=== PATIENT | male | born 1985 | race Caucasian/White ===

== ENCOUNTER 2023-01-24 17:30 | Inpatient (IN) ==
--- NOTE | 2023-01-24 18:15 | Emergency Department Note ---
History of Present Illness General Chief complaint: Seizure Time Seen by Provider: 01/24/23 17:56 History of Present Illness Maximum Pain Intensity: 4 This is a 37-year-old male that presents to the emergency department via private vehicle accompanied by corrections officers with complaints of "seizure". Patient currently resides at [facility]. Patient has a history of seizures. Patient notes that he was seizure-free for about a year and a half. He states that seizures began around 2006 following head and neck injury. Patient notes he was most recently here in the ED on 01/18/23 for evaluation of seizures. He notes that generally he experiences a taste of metal in his mouth preceding the seizure. He states that his Keppra was increased from 750 mg p.o. twice daily to 1000 mg p.o. twice daily. He notes then today seizures occurred again. It was reported that he had about 5 seizures today. Patient denies any preceding illness. No fevers. No chest pain or shortness of breath. Patient does note some minor left occipital head discomfort as he believes he struck his head off of the wall during the seizure. He denies biting the tongue or urinary incontinence. Home Medications Medication Instructions Recorded Confirmed Type albuterol sulfate 90 mcg/actuation 2 puff inhalation QID PRN 01/24/23 01/24/23 History aerosol inhaler Shortness Of Breath atenolol 50 mg tablet 50 mg PO DAILY 01/24/23 01/24/23 History buspirone 10 mg tablet 20 mg PO BID 01/24/23 01/24/23 History ciclesonide 80 mcg/actuation 1 puff inhalation BID 01/24/23 01/24/23 History aerosol inhaler (Alvesco) dicyclomine 20 mg tablet 20 mg PO TID PRN .. 01/24/23 01/24/23 History gabapentin 400 mg capsule 400 mg PO BID 01/24/23 01/24/23 History levetiracetam 1,000 mg tablet 1,000 mg PO BID 01/24/23 01/24/23 History nortriptyline 50 mg capsule 50 mg PO DAILY 01/24/23 01/24/23 History nortriptyline 50 mg capsule 100 mg PO HS 01/24/23 01/24/23 History paliperidone palmitate 234 mg/1.5 234 mg IM .[id number] 01/24/23 01/24/23 History mL intramuscular syringe (Invega Sustenna) tamsulosin 0.4 mg capsule 0.4 mg PO DAILY 01/24/23 01/24/23 History Allergies Allergy/AdvReac Type Severity Reaction Status Date / Time benztropine [From Cogentin] Allergy Unknown Verified 01/24/23 18:16 diphenhydramine Allergy Unknown Verified 01/24/23 18:16 [From Benadryl Allergy] Penicillins Allergy Unknown Verified 01/24/23 18:16 phenytoin [From Dilantin] Allergy Unknown Verified 01/24/23 18:16 prazosin [From Minipress] Allergy Unknown Verified 01/24/23 18:16 Past Med/Surg History Medical History Seizures Social History Smoking Status: Former smoker Second Hand Exposure: No; Do You Dip or Chew Tobacco: No; Hx Alcohol Use: No Hx Substance Use: No Preferred Language: Yakut Communication Ability: Effective Beliefs That Will Affect Care: None Current Living Situation: Other Current Living Situation Comment: [facility] Other Information That Helps Us Care for You: No Feels Safe at Home: Yes Safety Concerns: Feels Safe At This Time Assistive Devices: None Review of Systems A total of 10 systems reviewed and were otherwise negative Physical Exam Vital Signs Vital Signs - 24 hr 01/24/23 17:37 01/24/23 17:44 01/24/23 18:19 Temperature 36.7 C Temperature Source Oral Pulse Rate 91 H 93 H 82 Pulse Rate from SpO2 Sensor Respiratory Rate 16 18 Blood Pressure 120/90 Blood Pressure Mean 100 Pulse Oximetry 94 96 Oxygen Delivery Method Room Air Sepsis Recent Fever Within 48 Hours No Sepsis New/Unexplained Change in Mental Status No Sepsis Action Taken by Nursing No Action Required 01/24/23 17:40 01/24/23 18:00 01/24/23 18:00 Temperature Temperature Source Pulse Rate 101 H 90 Pulse Rate from SpO2 Sensor 103 H 89 Respiratory Rate 19 24 Blood Pressure 122/75 Blood Pressure Mean 90 Pulse Oximetry 94 94 Oxygen Delivery Method Sepsis Recent Fever Within 48 Hours Sepsis New/Unexplained Change in Mental Status Sepsis Action Taken by Nursing 01/24/23 18:30 01/24/23 19:00 01/24/23 19:00 Temperature Temperature Source Pulse Rate 85 85 Pulse Rate from SpO2 Sensor 85 Respiratory Rate 21 24 Blood Pressure 119/83 Blood Pressure Mean 95 Pulse Oximetry 96 Oxygen Delivery Method Sepsis Recent Fever Within 48 Hours Sepsis New/Unexplained Change in Mental Status Sepsis Action Taken by Nursing 01/24/23 19:30 01/24/23 19:30 Temperature Temperature Source Pulse Rate 82 Pulse Rate from SpO2 Sensor 81 Respiratory Rate 21 Blood Pressure 124/88 Blood Pressure Mean 100 Pulse Oximetry 95 Oxygen Delivery Method Sepsis Recent Fever Within 48 Hours Sepsis New/Unexplained Change in Mental Status Sepsis Action Taken by Nursing VITAL SIGNS - Vital signs and triage nursing notes were reviewed. Stable and afebrile. GENERAL -37-year-old male appearing his stated age who is in no acute distress. Communicates well with provider and answers questions appropriately. SKIN - Without rashes. No meningeal or petechial rash. HEAD - NC/AT. EYES - PERRL with EOMI bilaterally. Sclera anicteric. EARS - No deformities of external structures noted on gross examination bilaterally. External auditory canals without discharge or otorrhea. Tympanic membranes pearly mckeon without retraction or bulging. No fluid or purulent material visualized behind the TM. Handle of malleus, umbo, cone of light, pars tensa/flaccid all easily visualized. NOSE - Midline and without cyanosis. No epistaxis or purulent drainage noted. Septum midline without deviation or septal hematoma noted. MOUTH/OROPHARYNX - Without perioral cyanosis. NECK - Neck with FROM. No nuchal rigidity. LUNGS -clear to auscultation. CARDIAC -regular rate and rhythm. EXTREMITIES - No clubbing or peripheral cyanosis. No pretibial edema present. +5/5 strength noted in UE/LE bilaterally. NEUROLOGIC - Cranial nerves II through XII grossly intact. PSYCH - A&Ox3 and cooperates fully with examiner. Pt is very pleasant and interacts well with examiner. Course Administered Medications Enoxaparin Sodium (Enoxaparin Inj 40 Mg/0.4 Ml Syr) 40 mg SQ Q24H MICHAEL Stop: 02/23/23 21:59 Last Admin: 01/24/23 23:08 Dose: 40 mg Documented By: AMM Sodium Chloride (Nss 1000ml) 1,000 mls @ 100 mls/hr IV .Q10H MICHAEL Stop: 01/25/23 07:59 Last Admin: 01/24/23 23:08 Dose: 100 mls/hr Documented By: LIUDMILA Discontinued Medications Gabapentin (Gabapentin 400 Mg Cap) 400 mg PO NOW STA Stop: 01/24/23 19:33 Last Admin: 01/24/23 20:17 Dose: 400 mg Documented By: ZACHARY Levetiracetam 1,000 mg/ Sodium (Chloride) 110 mls @ 440 mls/hr IV NOW STA Stop: 01/24/23 19:59 Last Infusion: 01/24/23 20:39 Dose: 0 mls/hr Documented By: Admin: 01/24/23 20:17 Dose: 440 mls/hr Documented By: ZACHARY Levetiracetam (Levetiracetam 500 Mg Tab) 1,000 mg PO NOW STA Stop: 01/24/23 19:33 Last Admin: 01/24/23 20:17 Dose: Not Given Documented By: ZACHARY Medical Decision Making Laboratory Data 01/24/23 18:00 01/24/23 18:00 Lab Results 01/24/23 01/24/23 01/24/23 Range/Units 18:00 18:00 18:00 WBC 8.42 (4.8-10.8) K/ul RBC 4.13 L (4.70-6.10) M/uL Hgb 12.7 L (14.0-18.0) g/dl Hct 37.6 L (42.0-52.0) % MCV 91.0 (80.0-100.0) fL MCH 30.8 (25.0-34.0) pg MCHC 33.8 (32.0-36.0) g/dL RDW Std Deviation 42.4 (36.4-46.3) fL RDW Coeff of Casi 12.9 (11.5-14.5) % Plt Count 261 (130-400) K/uL MPV 11.0 (9.4-12.4) fL Immature Gran % (Auto) 0.4 % Neut % (Auto) 69.1 % Lymph % (Auto) 22.9 % Sharp % (Auto) 6.1 % Eos % (Auto) 0.8 % Baso % (Auto) 0.7 % Neut # (Auto) 5.82 (1.40-6.50) K/uL Lymph # (Auto) 1.93 (1.2-3.4) K/uL Sharp # (Auto) 0.51 (0.11-0.59) K/uL Eos # (Auto) 0.07 (0-0.50) K/uL Baso # (Auto) 0.06 (0-0.2) K/uL Immature Gran # (Auto) 0.03 (0.01-0.20) K/uL Sodium 139 (136-145) mmol/L Potassium 3.8 (3.5-5.1) mmol/L Chloride 108 H (98-107) mmol/L Carbon Dioxide 25 (21-32) mmol/L Anion Gap 6 (3-11) BUN 12 (6-23) mg/dl Creatinine 0.98 (0.6-1.4) mg/dl Est Cr Clr Drug Dosing 111.0 ml/min Est GFR ( Amer) 113.7 ml/min Est GFR (Non-Af Amer) 98.1 ml/min BUN/Creatinine Ratio 12.2 (10-20) Glucose 120 H (70-99(Fasting)) mg/dl Calcium 9.1 (8.6-10.3) mg/dl Magnesium 2.0 (1.7-2.4) mg/dl Total Bilirubin 0.3 (0.2-1.0) mg/dl AST 20 (13-39) U/L ALT 20 (7-52) U/L Alkaline Phosphatase 91 (34-104) U/L Total Protein 6.4 (6.0-8.3) gm/dl Albumin 4.0 (3.4-5.0) gm/dl Globulin 2.4 L (2.5-4.0) gm/dl Albumin/Globulin Ratio 1.7 (0.9-2) TSH 1.493 (0.300-4.500) uIu/ml SARS-CoV-2, RNA, NAAT (NEGATIVE) 01/24/23 Range/Units 18:30 WBC (4.8-10.8) K/ul RBC (4.70-6.10) M/uL Hgb (14.0-18.0) g/dl Hct (42.0-52.0) % MCV (80.0-100.0) fL MCH (25.0-34.0) pg MCHC (32.0-36.0) g/dL RDW Std Deviation (36.4-46.3) fL RDW Coeff of Casi (11.5-14.5) % Plt Count (130-400) K/uL MPV (9.4-12.4) fL Immature Gran % (Auto) % Neut % (Auto) % Lymph % (Auto) % Sharp % (Auto) % Eos % (Auto) % Baso % (Auto) % Neut # (Auto) (1.40-6.50) K/uL Lymph # (Auto) (1.2-3.4) K/uL Sharp # (Auto) (0.11-0.59) K/uL Eos # (Auto) (0-0.50) K/uL Baso # (Auto) (0-0.2) K/uL Immature Gran # (Auto) (0.01-0.20) K/uL Sodium (136-145) mmol/L Potassium (3.5-5.1) mmol/L Chloride (98-107) mmol/L Carbon Dioxide (21-32) mmol/L Anion Gap (3-11) BUN (6-23) mg/dl Creatinine (0.6-1.4) mg/dl Est Cr Clr Drug Dosing ml/min Est GFR ( Amer) ml/min Est GFR (Non-Af Amer) ml/min BUN/Creatinine Ratio (10-20) Glucose (70-99(Fasting)) mg/dl Calcium (8.6-10.3) mg/dl Magnesium (1.7-2.4) mg/dl Total Bilirubin (0.2-1.0) mg/dl AST (13-39) U/L ALT (7-52) U/L Alkaline Phosphatase (34-104) U/L Total Protein (6.0-8.3) gm/dl Albumin (3.4-5.0) gm/dl Globulin (2.5-4.0) gm/dl Albumin/Globulin Ratio (0.9-2) TSH (0.300-4.500) uIu/ml SARS-CoV-2, RNA, NAAT NEGATIVE (NEGATIVE) Imaging Data Radiologist's Impression: Head CT 01/24/23 18:16 CT OF THE HEAD WITHOUT CONTRAST CLINICAL HISTORY: seizure, struck head COMPARISON STUDY: Head CT January 18, 2023. CT DOSE: 638.56 mGycm TECHNIQUE: Helical axial images of the head were obtained without IV contrast. Automated exposure control was utilized for the study. A dose lowering technique was utilized adhering to the principles of ALARA. FINDINGS: No acute intracranial hemorrhage, midline shift or mass effect is present. The ventricular system is unremarkable. The basal cisterns are patent. No extra-axial collections are present. There are no findings to suggest acute dural sinus thrombosis or acute territorial infarct. No significant calvarial abnormalities are present. Visualized portions of the sinuses and mastoid air cells are clear. IMPRESSION: 1. No acute intracranial findings. No acute calvarial fracture. ACT 112: Negative or not required by law. Electronically signed by: Mohit Plata M.D. 01/24/2023 6:59 PM MDM Narrative Patient was seen and evaluated as above in room A10. Review was performed of nursing notes and vital signs. I did review pertinent previous visits and patient history. After obtaining a thorough history and physical examination the above work up was performed. Patient presents to us today for evaluation of seizures. Patient has a history remotely of seizures but was seizure-free for about a year and a half up until 01/18/2023. He was discharged following increase of his Keppra dosing. Clinically he is well-appearing and nontoxic at this time. Vital signs stable. No evidence of meningitis or encephalitis. Options of care were discussed with the patient. IV access was established. La bs were drawn. There is no leukocytosis. Minor anemia noted with hemoglobin of 12.7. No emergent metabolic disturbance. TSH reveals euthyroid state. Gabapentin and Keppra level pending. COVID testing negative. CT scan was obtained of the head as the patient believes he struck his head today during seizure. It is felt that the benefit of the imaging outweighs risk. CT imaging as above. This was negative. I do not suspect infectious etiology. I did reach out to the [facility] and ultimately spoke to SOFI Clifton regarding patient presentation. She provide additional history noting that the patient did seizures on 01/18 but also had seizures again between the ED visit that day and today. With the patient having several seizures despite reported compliance with his medication I did find it reasonable to proceed with medical admission here. I also spoke with neurology, Dr. Oh. We did agree to 1000 mg of Keppra here in the ED followed by 1000 mg of Keppra intravenously twice daily while hospitalized. [facility] Please refer to further documentation regarding his stay. While here in the ED I did order the patient 1000 g of IV Keppra as well as oral gabapentin that he currently is due for as the last dose of both these medications was around 6 AM today after reviewing this with the [facility]. EKG reveals normal sinus rhythm at a rate of 83 bpm. QTc 420. QRS 92. No ST elevation. GCS: 15 In the evaluation and treatment of this patient the following differential diagnoses were entertained: Meningitis, encephalitis, concussion, acute intracranial hemorrhage, seizure, among others. Impression & Plan Seizures Discharge Plan Visit Data Chief Complaint: Seizure ED Provider: Fahad Godfrey ED Midlevel Provider: Jeramie Leary Discharge Problem: Seizures Patient Disposition: Admitted As Inpatient Condition: Good Discharge Instructions Interventions: ED Discharge Assessment Last Done: 01/24/23 21:33
[2023-01-24 18:53] LABS: Albumin Globulin Ratio 1.7 (0.9-2); BUN Creatinine Ratio 12.2 (10-20); Basophils # (auto) 0.06 K/uL (0-0.2); Basophils % (auto) 0.7 %; Bilirubin,Total 0.3 mg/dl (0.2-1.0); Calcium 9.1 mg/dl (8.6-10.3); Eosinophils # (auto) 0.07 K/uL (0-0.50); Eosinophils % (auto) 0.8 %; Est GFR (African American) 113.7 ml/min; Est GFR (Non-African American) 98.1 ml/min; Globulin 2.4 gm/dl (2.5-4.0); Hematocrit (blood only) 37.6 % (42.0-52.0); Hemoglobin 12.7 g/dl (14.0-18.0); Immature Granulocytes # (auto) 0.03 K/uL (0.01-0.20); Immature Granulocytes % (auto) 0.4 %; Lymphocytes # (auto) 1.93 K/uL (1.2-3.4); Lymphocytes % (auto) 22.9 %; Mean Corpuscular Hemoglobin 30.8 pg (25.0-34.0); Mean Corpuscular Hgb Conc 33.8 g/dL (32.0-36.0); Monocytes # (auto) 0.51 K/uL (0.11-0.59); Monocytes % (auto) 6.1 %; Neutrophils # (auto) 5.82 K/uL (1.40-6.50); Neutrophils % (auto) 69.1 %; Platelet Count 261 K/uL (130-400); Potassium 3.8 mmol/L (3.5-5.1); RDW Coefficient of Variation 12.9 % (11.5-14.5); RDW Standard Deviation 42.4 fL (36.4-46.3); Red Blood Count 4.13 M/uL (4.70-6.10); Total Protein 6.4 gm/dl (6.0-8.3); White Blood Count 8.42 K/ul (4.8-10.8)
--- NOTE | 2023-01-24 19:00 | CT Scan Report ---
CT OF THE HEAD WITHOUT CONTRAST CLINICAL HISTORY: seizure, struck head COMPARISON STUDY: Head CT January 18, 2023. CT DOSE: 638.56 mGycm TECHNIQUE: Helical axial images of the head were obtained without IV contrast. Automated exposure con trol was utilized for the study. A dose lowering technique was utilized adhering to the principles o f ALARA. FINDINGS: No acute intracranial hemorrhage, midline shift or mass effect is present. The ventricular system is unremarkable. The basal cisterns are patent. No extra-axial collections are present. There are no findings to suggest acute dural sinus thrombosis or acute territorial infarct. No significant calvarial abnormalities are present. Visualized portions of the sinuses and mastoid air cells are sara ar. IMPRESSION: 1. No acute intracranial findings. No acute calvarial fracture. ACT 112: Negative or not required by law. Electronically signed by: Mohit Plata M.D. 01/24/2023 6:59 PM
[2023-01-24] MEDS ORDERED: levETIRAcetam 500 MG TAB PO STA (19:32)
[2023-01-24] MEDS ORDERED: GABAPENTIN 400 MG CAP PO STA (19:32)
[2023-01-24] MEDS ORDERED: levETIRAcetam 1,000 MG in 0.9 % SODIUM CHLORIDE 100 ML IV STA (19:45)
[2023-01-24] MEDS ORDERED: ONDANSETRON INJ 2 MG/ML 2 ML VIAL IV PRN (22:00)
[2023-01-24] MEDS ORDERED: NITROGLYCERIN SL 0.4 MG/TAB TAB SL PRN (22:00)
[2023-01-24] MEDS ORDERED: POLYETHYLENE (MIRALAX) 17 GM PACK PO PRN (22:00)
[2023-01-24] MEDS ORDERED: SODIUM CHLORIDE 0.9% 1000ML 1,000 ML IV SCH (22:00)
[2023-01-24] MEDS ORDERED: LORazepam 2 MG/1 ML VIAL IV PRN (22:00)
[2023-01-24] MEDS ORDERED: ALBUTEROL HFA 8 GM INHALER INH PRN (22:00)
[2023-01-24] MEDS: ENOXAPARIN INJ 40 MG/0.4 ML SYR SQ SCH (23:08)
--- NOTE | 2023-01-24 23:28 | History and Physical Report ---
DATE OF ADMISSION: 01/24/2023. CHIEF COMPLAINT: Seizures. HISTORY OF PRESENT ILLNESS: This is a 37-year-old male with past medical history significant for seizures since he had head injury in 2006, history of hypertension, asthma, history of bipolar disorder, psychiatric illness, presently in longterm, presents with seizures. The patient was here in the ER on 01/18/2023 with seizure episodes. It looks like that seizure was after 18 months since the last seizure and he told he was compliant with Keppra. before coming to Er at that was given IM Ativan and the ER physician talked to the neurology funeral professional and got an extra IV Keppra here and as workup was negative, was discharged,.Now again comes back from the longterm today because he had several episodes of seizures today. The patient says they last a few seconds, sometimes he was confused for a short period of time or had some word finding difficulty for a short period of time and mental status comes back to normal. ER called the longterm and was notified that he was taking his medications regularly. ER again talked to neurology funeral professional and recommended to give IV Keppra and also monitor in the hospital. Currently, the patient is resting comfortably, hemodynamically stable. Denies biting his tongue , he says that he has no lower teeth. Denies any incontinence. Currently, he is eating ice cream in the ER room. He says that he currently has no headache, no dizziness, no blurred visions, no earache, no runny nose, no sore throat, no cough, no fevers, no difficulty swallowing. No chest pain, no shortness of breath. No nausea or vomiting. No abdominal pain. Normal bowel and bladder movements. The patient says he smokes e cigarettes and also denies any alcohol use. He used to do drugs in the past, the last time he did drugs was about 1-1/2 years ago. ALLERGIES: COGENTIN, BENADRYL, PENICILLINS, PHENYTOIN, MINIPRESS. PAST MEDICAL HISTORY: As mentioned above. PAST SURGICAL HISTORY: Appendectomy, surgeries in the right hand, and surgery for a pilonidal sinus. He had petty for his head injury. MEDICATIONS: The patient seems to be on albuterol 2 puffs inhalation q.i.d. p.r.n., atenolol 50 mg p.o. daily, BuSpar 20 mg p.o. b.i.d., Alvesco 1 puff inhalation b.i.d., dicyclomine 20 mg p.o. b.i.d. p.r.n., gabapentin 400 mg p.o. b.i.d., Keppra 1000 mg p.o. b.i.d., nortriptyline 50 mg p.o. daily, nortriptyline 100 mg p.o. at bedtime, Invega Sustenna 234 mg IM q. 4 hours, Flomax 0.4 mg p.o. daily. FAMILY HISTORY: Significant for history of cancer in the family. SOCIAL HISTORY: Smokes few cigarettes for a long time. Denies alcohol use. States he used to smoke drugs in the past, last time was about 1 to 1-1/2 years ago. REVIEW OF SYSTEMS: As per HPI. Rest of review of systems is negative. PHYSICAL EXAMINATION: GENERAL: The patient is of moderate build, not in acute distress. VITAL SIGNS: Temperature 36.7, pulse 82, respiratory rate 21, blood pressure 124/88, oxygen 94% on room air. HEENT: Pupils equal, round, and reactive to light. Oral mucosa moist. NECK: No JVD, no neck masses. CARDIOVASCULAR: S1 and S2 heard. Regular rate and rhythm. No murmur, no gallop. RESPIRATORY SYSTEM: Normal AP diameter. No accessory muscle use. No wheezing, no crackles. ABDOMEN: Soft, bowel sounds present, nontender, no distention. CENTRAL NERVOUS SYSTEM: Alert and oriented. Speech is clear. No facial droop. Obeys commands. Power 5/5 in all extremities. EXTREMITIES: No edema, no erythema. LABORATORY DATA: WBC 8.2, hemoglobin 12.7, hematocrit 37.6, platelets 261. Sodium 139, potassium 3.8, chloride 108, CO2 of 25, BUN 12, creatinine 0.98, serum glucose 120, calcium 9.1, magnesium 2, total bilirubin 0.3, AST 20, ALT 20, alkaline phosphatase 91. TSH 1.4. SARS-CoV-2 rapid test negative. IMAGING DATA: CT of the head without contrast, no acute findings. EKG: Normal sinus rhythm, rate of 83, no acute ST changes seen. ASSESSMENT AND PLAN: This is a 37-year-old male who presents with seizures. 1. Seizures: Ongoing breakthrough seizures, recurrent. Was recently in the ER, at that time Keppra dose was increased. It looks like he has also had gabapentin in the longterm. Still having breakthrough seizures, short burst of seizures. As per the patient, he does not remember when they happen. Neurology notified by the ER. He was given IV Keppra 1 gram. Will continue with IV Keppra 1 gram b.i.d., continue his gabapentin for now, and IV Ativan p.r.n. for breakthrough seizures. We will get EEG. Consult neurology in the a.m. Monitor in the tele floor. 2. History of asthma: Continue his home inhalers. Currently stable. 3. History of hypertension: Continue his atenolol. 4. History of bipolar and psychiatric illness: Continue his home medications. 5. Deep venous thrombosis prophylaxis: Lovenox. DISPOSITION: Closely monitor in the tele floor. PT, OT prior to discharge. Social service to help with discharge planning. Level 1 full code. Job ID: [id number] [facility]
[2023-01-25 06:02] LABS: Basophils # (auto) 0.06 K/uL (0-0.2); Basophils % (auto) 0.8 %; Eosinophils # (auto) 0.12 K/uL (0-0.50); Eosinophils % (auto) 1.6 %; Hematocrit (blood only) 37.7 % (42.0-52.0); Hemoglobin 12.6 g/dl (14.0-18.0); Immature Granulocytes # (auto) 0.02 K/uL (0.01-0.20); Immature Granulocytes % (auto) 0.3 %; Lymphocytes # (auto) 2.39 K/uL (1.2-3.4); Lymphocytes % (auto) 31.2 %; Mean Corpuscular Hgb Conc 33.4 g/dL (32.0-36.0); Mean Corpuscular Volume 92.9 fL (80.0-100.0); Mean Platelet Volume 10.9 fL (9.4-12.4); Monocytes # (auto) 0.63 K/uL (0.11-0.59); Monocytes % (auto) 8.2 %; Neutrophils # (auto) 4.43 K/uL (1.40-6.50); Neutrophils % (auto) 57.9 %; Platelet Count 248 K/uL (130-400); RDW Coefficient of Variation 12.9 % (11.5-14.5); RDW Standard Deviation 44.3 fL (36.4-46.3); Red Blood Count 4.06 M/uL (4.70-6.10); White Blood Count 7.65 K/ul (4.8-10.8)
[2023-01-25 06:08] LABS: BUN Creatinine Ratio 15.7 (10-20); Calcium 8.5 mg/dl (8.6-10.3); Creatinine Clr Calc Pharmacy 120.3 ml/min; Est GFR (African American) 126.6 ml/min; Est GFR (Non-African American) 109.2 ml/min; Magnesium 1.9 mg/dl (1.7-2.4); Potassium 3.8 mmol/L (3.5-5.1)
[2023-01-25 07:25] LABS: Appearance Urine Clear (Clear); Bilirubin Urine Negative (Negative); Blood Urine Negative (Negative); Color Urine Yellow; Glucose Urine UA Negative (Negative); Ketones Urine Negative (Negative); Leukocyte Esterase Urine Negative (Negative); Nitrite Urine Negative (Negative); Protein Urine Negative (Negative); Specific Gravity Urine 1.017 (1.000-1.030); Urobilinogen Urine Negative (Negative); pH Urine 6.5 (4.5-7.5)
[2023-01-25] MEDS: TAMSULOSIN HCL 0.4 MG CAP PO SCH (08:32)
[2023-01-25] MEDS: busPIRone 5 MG TAB PO SCH ×2 (08:32→20:24)
[2023-01-25] MEDS: ATENOLOL 50 MG TABLET PO SCH (08:33)
[2023-01-25] MEDS: GABAPENTIN 400 MG CAP PO SCH ×2 (08:33→20:24)
[2023-01-25] MEDS: ACETAMINOPHEN 325 MG TAB PO PRN ×2 (08:33→18:14)
[2023-01-25] MEDS: NORTRIPTYLINE HCL 25 MG CAP PO SCH (08:33)
[2023-01-25] MEDS: FLUTICASONE FUROATE 100MCG 14 PUFFS/INHALER INH SCH (08:34)
[2023-01-25] MEDS ORDERED: levETIRAcetam 1,000 MG in 0.9 % SODIUM CHLORIDE 100 ML IV SCH (09:00)
--- NOTE | 2023-01-25 10:51 | Electroencephalogram ---
EEG Procedure Note Date of Service January 25, 2023 Start / End Times Start Time: 9:27 AM End Time: 9:[address] Yang History Seizure disorder, recent seizures Home Medication List Medication Instructions Recorded Confirmed Type albuterol sulfate 90 mcg/actuation 2 puff inhalation QID PRN 01/24/23 01/24/23 History aerosol inhaler Shortness Of Breath atenolol 50 mg tablet 50 mg PO DAILY 01/24/23 01/24/23 History buspirone 10 mg tablet 20 mg PO BID 01/24/23 01/24/23 History ciclesonide 80 mcg/actuation 1 puff inhalation BID 01/24/23 01/24/23 History aerosol inhaler (Alvesco) dicyclomine 20 mg tablet 20 mg PO TID PRN .. 01/24/23 01/24/23 History gabapentin 400 mg capsule 400 mg PO BID 01/24/23 01/24/23 History levetiracetam 1,000 mg tablet 1,000 mg PO BID 01/24/23 01/24/23 History nortriptyline 50 mg capsule 50 mg PO DAILY 01/24/23 01/24/23 History nortriptyline 50 mg capsule 100 mg PO HS 01/24/23 01/24/23 History paliperidone palmitate 234 mg/1.5 234 mg IM .[id number] 01/24/23 01/24/23 History mL intramuscular syringe (Invega Sustenna) tamsulosin 0.4 mg capsule 0.4 mg PO DAILY 01/24/23 01/24/23 History Inpatient Medication List Acetaminophen (Acetaminophen 325 Mg Tab) 650 mg PO Q4H PRN PRN Reason: Pain or Fever Stop: 02/23/23 21:59 Last Admin: 01/25/23 08:33 Dose: 650 mg Documented By: SHON Atenolol (Atenolol 50 Mg Tablet) 50 mg PO DAILY [facility] Stop: 02/24/23 08:59 Last Admin: 01/25/23 08:33 Dose: 50 mg Documented By: SHON Buspirone HCl (Buspirone 5 Mg Tab) 20 mg PO BID [facility] Stop: 02/24/23 08:59 Last Admin: 01/25/23 08:32 Dose: 20 mg Documented By: TARA Enoxaparin Sodium (Enoxaparin Inj 40 Mg/0.4 Ml Syr) 40 mg SQ Q24H MICHAEL Stop: 02/23/23 21:59 Last Admin: 01/24/23 23:08 Dose: 40 mg Documented By: LIUDMILA Fluticasone Furoate (Fluticasone Furoate 100mcg 14 Puffs/Inhaler) 1 puffs INH DAILY MICHAEL Stop: 02/24/23 08:59 Last Admin: 01/25/23 08:34 Dose: 1 puffs Documented By: SHON Gabapentin (Gabapentin 400 Mg Cap) 400 mg PO BID MICHAEL Stop: 02/24/23 08:59 Last Admin: 01/25/23 08:33 Dose: 400 mg Documented By: SHON Levetiracetam 1,000 mg/ Sodium (Chloride) 110 mls @ 440 mls/hr IV Q12H MICHAEL Stop: 02/24/23 08:59 Last Infusion: 01/25/23 09:59 Dose: 0 mls/hr Documented By: Admin: 01/25/23 08:38 Dose: 440 mls/hr Documented By: SHON Nortriptyline HCl (Nortriptyline Hcl 25 Mg Cap) 50 mg PO DAILY MICHAEL Stop: 02/24/23 08:59 Last Admin: 01/25/23 08:33 Dose: 50 mg Documented By: SHON Tamsulosin HCl (Tamsulosin Hcl 0.4 Mg Cap) 0.4 mg PO DAILY MICHAEL Stop: 02/24/23 08:59 Last Admin: 01/25/23 08:32 Dose: 0.4 mg Documented By: SHON Discontinued Medications Gabapentin (Gabapentin 400 Mg Cap) 400 mg PO NOW STA Stop: 01/24/23 19:33 Last Admin: 01/24/23 20:17 Dose: 400 mg Documented By: ZACHARY Levetiracetam 1,000 mg/ Sodium (Chloride) 110 mls @ 440 mls/hr IV NOW STA Stop: 01/24/23 19:59 Last Infusion: 01/24/23 20:39 Dose: 0 mls/hr Documented By: Admin: 01/24/23 20:17 Dose: 440 mls/hr Documented By: ZACHARY Sodium Chloride (Nss 1000ml) 1,000 mls @ 100 mls/hr IV .Q10H MICHAEL Stop: 01/25/23 07:59 Last Infusion: 01/25/23 08:02 Dose: 0 mls/hr Documented By: Admin: 01/24/23 23:08 Dose: 100 mls/hr Documented By: LIUDMILA Levetiracetam (Levetiracetam 500 Mg Tab) 1,000 mg PO NOW STA Stop: 01/24/23 19:33 Last Admin: 01/24/23 20:17 Dose: Not Given Documented By: ZACHARY Description This is a 21 electrode EEG with a single channel dedicated to limited EKG. The electrodes were placed in accordance with the International 10-20 system. There is a posterior dominant rhythm of 10 Hz which is symmetrically distributed and attenuates with eye opening. There is a normal anterior to posterior organization. Photic stimulation is unremarkable. Hyperventilation is not performed. There is a symmetric frontal beta rhythm. There is no focal slowing. There are no epileptiform abnormalities. There are no sleep changes. Interpretation Normal-appearing awake/drowsy EEG. A normal EEG does not completely exclude a diagnosis of epilepsy. Further clinical correlation may be needed. [facility] EEG Procedure Codes Indication for Procedure (1) Seizures: Neurology Neurology: 21834 EEG include record awake & drowsy
[2023-01-25] MEDS: PANTOprazole 40 MG TAB PO SCH (10:56)
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
[2023-01-25] MEDS ORDERED: GADOBUTROL 65ML VIAL IV ONE (17:51)
--- NOTE | 2023-01-25 18:09 | Magnetic Resonance Report ---
MRI OF THE BRAIN COMBO CLINICAL HISTORY: Posttraumatic epilepsy. COMPARISON STUDY: CT of the brain dated 01/24/2023. TECHNIQUE: MRI of the brain was performed utilizing various T1 and T2-weighted sequences in the axial , sagittal, and coronal planes. Contrast-enhanced sequences were acquired following the administratio n of 9 cc of Gadavist. The examination was performed using the seizure protocol. FINDINGS: Brain parenchyma: The brain parenchyma is normal in appearance. There is no hemorrhage or mass effect . There is no restricted diffusion to suggest acute ischemia. No enhancing mass lesion is identified on the postcontrast images. Gonzales-white matter differentiation is preserved. No extra-axial fluid krupa ection is seen. The cerebellar tonsils are normal in configuration. The hippocampi are normal and sym metric. Ventricles, sulci, and cisterns: Normal in configuration. Pituitary and sella: Unremarkable. Intracranial vasculature: Normal flow voids are maintained at the skull base. Orbits: The bony orbits are grossly intact. Orbital contents are normal in appearance. Sinuses and mastoids: The paranasal sinuses are clear. There is trace right mastoid effusion. Calvarium: Unremarkable. Cervical cord: Partially visualized cervical spinal cord is normal in morphology and signal intensity . IMPRESSION: No acute intracranial abnormality. ACT 112: Negative or not required by law. Electronically signed by: Chris Hussein M.D. 01/25/2023 6:06 PM
[2023-01-25] MEDS: levETIRAcetam 250 MG TAB PO SCH (20:25)
[2023-01-25] MEDS: ENOXAPARIN INJ 40 MG/0.4 ML SYR SQ SCH (20:27)
[2023-01-25] MEDS ORDERED: NORTRIPTYLINE HCL 25 MG CAP PO SCH (21:00)
--- NOTE | 2023-01-25 22:44 | Electrocardiogram Report ---
Test Reason : Blood Pressure : / mmHG Vent. Rate : 083 BPM Atrial Rate : 083 BPM P-R Int : 144 ms QRS Dur : 092 ms QT Int : 358 ms P-R-T Axes : 017 019 035 degrees QTc Int : 420 ms Poor data quality, interpretation may be adversely affected Normal sinus rhythm Normal ECG When compared with ECG of 18-JAN-2023 11:42, Vent. rate has decreased BY 42 BPM Confirmed by Boni Prescott ([id number]) on 01/25/2023 10:43:43 PM Referred By: [facility], [facility] Confirmed By:Boni Prescott
--- NOTE | 2023-01-26 04:58 | Electrocardiogram Report ---
Test Reason : Blood Pressure : / mmHG Vent. Rate : 087 BPM Atrial Rate : 087 BPM P-R Int : 148 ms QRS Dur : 086 ms QT Int : 354 ms P-R-T Axes : 011 020 017 degrees QTc Int : 425 ms Poor data quality, interpretation may be adversely affected Normal sinus rhythm Normal ECG When compared with ECG of 24-JAN-2023 18:28, No significant change was found Confirmed by Boni Prescott ([id number]) on 01/26/2023 4:58:13 AM Referred By: [facility] Confirmed By:Boni Prescott
[2023-01-26] MEDS: busPIRone 5 MG TAB PO SCH (08:46)
[2023-01-26] MEDS: levETIRAcetam 250 MG TAB PO SCH (08:46)
[2023-01-26] MEDS: PANTOprazole 40 MG TAB PO SCH (08:47)
[2023-01-26] MEDS: ATENOLOL 50 MG TABLET PO SCH (08:47)
[2023-01-26] MEDS: GABAPENTIN 400 MG CAP PO SCH (08:47)
[2023-01-26] MEDS: TAMSULOSIN HCL 0.4 MG CAP PO SCH (08:47)
[2023-01-26] MEDS: NORTRIPTYLINE HCL 25 MG CAP PO SCH (08:48)
[2023-01-26] MEDS: FLUTICASONE FUROATE 100MCG 14 PUFFS/INHALER INH SCH (08:48)
--- NOTE | 2023-01-26 11:58 | Discharge Summary ---
Date of Service January 26, 2023 Admission HPI Per Admitting Provider This is a 37-year-old male with past medical history significant for seizures since he had head injury in 2006, history of hypertension, asthma, history of bipolar disorder, psychiatric illness, presently in intermediate, presents with seizures. The patient was here in the ER on 01/18/2023 with seizure episodes. It looks like that seizure was after 18 months since the last seizure and he told he was compliant with Keppra. before coming to Er at that was given IM Ativan and the ER physician talked to the neurology publication director and got an extra IV Keppra here and as workup was negative, was discharged,.Now again comes back from the intermediate today because he had several episodes of seizures today. The patient says they last a few seconds, sometimes he was confused for a short period of time or had some word finding difficulty for a short period of time and mental status comes back to normal. ER called the intermediate and was notified that he was taking his medications regularly. ER again talked to neurology publication director and recommended to give IV Keppra and also monitor in the hospital. Currently, the patient is resting comfortably, hemodynamically stable. Denies biting his tongue , he says that he has no lower teeth. Denies any incontinence. Currently, he is eating ice cream in the ER room. He says that he currently has no headache, no dizziness, no blurred visions, no earache, no runny nose, no sore throat, no cough, no fevers, no difficulty swallowing. No chest pain, no shortness of breath. No nausea or vomiting. No abdominal pain. Normal bowel and bladder movements. The patient says he smokes e cigarettes and also denies any alcohol use. He used to do drugs in the past, the last time he did drugs was about 1-1/2 years ago. Admission Exam Per Admitting Provider GENERAL: The patient is of moderate build, not in acute distress. VITAL SIGNS: Temperature 36.7, pulse 82, respiratory rate 21, blood pressure 124/88, oxygen 94% on room air. HEENT: Pupils equal, round, and reactive to light. Oral mucosa moist. NECK: No JVD, no neck masses. CARDIOVASCULAR: S1 and S2 heard. Regular rate and rhythm. No murmur, no brown p. RESPIRATORY SYSTEM: Normal AP diameter. No accessory muscle use. No wheezing, no crackles. ABDOMEN: Soft, bowel sounds present, nontender, no distention. CENTRAL NERVOUS SYSTEM: Alert and oriented. Speech is clear. No facial droop. Obeys commands. Power 5/5 in all extremities. EXTREMITIES: No edema, no erythema. Principal Diagnosis Breakthrough seizure History of traumatic injury of head: Discharge Exam Constitutional: WD/WN, vitals as above, NAD, sitting up in bed, pleasant, conversing easily Respiratory: normal respiratory effort, lungs clear to auscultation, no wheeze, rales, rhonchi. Normal insp/exp effort, no accessory muscle use Cardiovascular: RRR, no murmur, no edema Vessels: no JVD or carotid bruit Chest: normal inspection of chest Abdomen: normal bowel sounds, soft, nontender, no hepatosplenomegaly Musculoskeletal: no cyanosis or clubbing, extremities motor strength 5/5 Skin: no rashes, warm and dry normal turgor Neurologic: PERRL, EOMI, accommodation nl, no face palsy, no dysarthria CN's II- XI intact bilaterally and moves all extremities Psychiatric: A+Ox3, euthymic affect : deferred Discharge Data Allergies Allergy/AdvReac Type Severity Reaction Status Date / Time benztropine [From Cogentin] Allergy Unknown Verified 01/24/23 18:16 diphenhydramine Allergy Unknown Verified 01/24/23 18:16 [From Benadryl Allergy] Penicillins Allergy Unknown Verified 01/24/23 18:16 phenytoin [From Dilantin] Allergy Unknown Verified 01/24/23 18:16 prazosin [From Minipress] Allergy Unknown Verified 01/24/23 18:16 Consultations 01/24/23 20:29 ED Decision to Admit Stat 01/25/23 08:00 Consult Neurology Routine Ordered Studies 01/24/23 18:16 CT head/brain wo con Stat 01/25/23 12:35 MRI Brain [MR brain seizure wo/w con] Routine Hospital Course (1) History of traumatic injury of head: (2) Breakthrough seizure: Plan 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 Presented with multiple episode of breakthrough seizures. CT head did not show any acute abnormality. EEG does not show any abnormality. Discussed with neurology; recommend increasing the dose of Keppra to 1250 mg twice daily. Continue on gabapentin 400 mg twice daily. MRI brain with seizure protocol was done; no acute finding was seen. Patient was seizure-free throughout the hospitalization. Patient was discharged back to intermediate. Please note the above document was generated using voice recognition software. It may contain grammatical, syntax or spelling errors. Any formal questions or concerns about the content, text or information contained within the body of this dictation should be directly addressed to the provider for clarification Total Time Total Time Spent Total Time Spent (In Minutes): 40 Total Time Includes: Examination of the Patient, Discharge Planning, Medication Reconciliation, Communication With Other Providers and Other Discharge Plan Discharge Items Patient Disposition: [facility] Reason For Visit: SEIZURE Discharge Diagnosis: (1) History of traumatic injury of head: (2) Breakthrough seizure: Condition on Discharge: Good Activity: Resume your previous activity Non-emergency contact: Primary Care Provider Call non-emergency contact if: you have any medication questions and your symptoms worsen Follow-up/Referrals: Nohemi GONZALEZ [Primary Care Provider] - Adan Attending Provider Instructions: You were admitted to the hospital with breakthrough seizure. You were evaluated by neurology during the hospitalization. You underwent EEG which did not show any abnormality. Also, MRI brain was done with seizure protocol which did not show any abnormality. Neurology recommended to increase the dose of Keppra to 1250 mg twice daily. Continue all other medication as previously. Follow-up with her primary care doctor. Pending Studies at Discharge: No Stand-Alone Forms: My [facility] Skilled Items Patient informed of condition?: Yes Discharge Level of Care: Other Communicable Disease: No Discharge Prognosis: Stable Lines: None Urinary Catheter: No Medications and DC Order Prescriptions: Continued gabapentin 400 mg Capsule 400 mg PO BID tamsulosin 0.4 mg Capsule 0.4 mg PO DAILY dicyclomine 20 mg Tablet 20 mg PO TID PRN (Reason: ..) buspirone [BuSpar] 10 mg Tablet 20 mg PO BID albuterol sulfate 90 mcg/actuation Hfa Aerosol Inhaler 2 puff INHALATION QID PRN (Reason: Shortness Of Breath) atenolol 50 mg Tablet 50 mg PO DAILY nortriptyline 50 mg Capsule 50 mg PO DAILY Rx Instructions: crush & float nortriptyline 50 mg Capsule 100 mg PO HS Rx Instructions: crush Alvesco 80 mcg/actuation Hfa Aerosol Inhaler 1 puff INHALATION BID Invega Sustenna 234 mg/1.5 mL Syringe 234 mg IM .[id number] Rx Instructions: GIVE ON SUNDAY Changed levetiracetam 1,000 mg Tablet 1,250 mg PO BID Qty: 30 0RF Discharge Orders: Discharge Order (Routine); Ordered 01/26/23 Ordered By: Sage Rosa Admission Data Admit Date/Time: 01/24/23 21:05 Attending Provider: Sage Rosa Admit Provider: Miguel Yang Primary Care Provider: Nohemi GONZALEZ Other Providers: Damien Oh ; Miguel Yang
== END 2023-01-26 14:23 | DRG 101 ==
LOC: ED 17:30 → 2S 21:05

== ENCOUNTER 2023-02-20 13:47 | Inpatient (IN) ==
--- NOTE | 2023-02-20 14:06 | Emergency Department Note ---
Impression & Plan Seizure-like activity, History of traumatic injury of head ED Provider Note Provider: Andrea Burger MD DATE OF SERVICE: 02/20/2023 CHIEF COMPLAINT: Seizures HISTORY OF PRESENT ILLNESS: Patient is a 37-year-old gentleman history of hypertension, seizures, IBS, bipolar disorder presenting here today from jail reportedly with more than 30 seizures in last 2 hours. Received 4 mg of Ativan present and additional 4 mg of Versed for EMS prior to arrival. Had several events for EMS. Upon arrival here patient planes a little bit of a headache. Denies any trauma. States he is taken his medicine was distressing and so when this happened. States he gets a bit of an aura of halos and a Medi-Yasmani taste and then seizures happens. Is unsure what may be provoking things today again as he states medication compliance. Denies recent illness. Was hospitalized here in December for seizures. PAST MEDICAL HISTORY: As noted above MEDICATIONS: Reviewed home medication list from the jail SOCIAL HISTORY: [facility] PHYSICAL EXAM: GENERAL: alert and oriented in no acute distress on stretcher guards at bedside Head: normocephalic and atraumatic EYES: No injection, discharge or icterus. PERRL NECK: Trachea midline. Supple. ENT: Mucous membranes pink and moist. LUNGS: Airway patent. No retractions. Breath sounds clear HEART: Regular rate and rhythm. No chest wall tenderness ABDOMEN: Soft and non-tender, without guarding or rebound. SKIN: Acyanotic, warm, dry, without rashes EXTREMITIES: Without swelling, tenderness or deformity NEUROLOGICAL: No focal deficits. No aphasia. No facial droop or slurred speech. EK bpm normal sinus rhythm. No PVC or PAC. No acute ST segment elevation or depression with QTc 417 CONTINUOUS CARDIAC MONITORING: was ordered and showed a heart rate of 90s-100s bpm in normal sinus rhythm sinus tachycardia Patient's laboratory studies and imaging reviewed. Differential includes Epilepsy, infection, hypoglycemia, electrolyte abnormalities, cardiac sources, intracerebral event, trauma, toxicologic, dandy rologic, syncope, as well as other pathologies. IMPRESSION/MEDICAL DECISION MAKING: Patient with history reportedly of TBI and seizures on Keppra. Hospitalized here in December reviewed hospitalization. Has had his Keppra increased at that time. Reportedly had several dozen events today and received Ativan and Versed prior to arrival. Fairly awake upon arrival with mild headache. No infectious symptoms reported or trauma. Basic blood work sent. Had EEG and MRI about a month ago without significant acute findings. Unsure if these events are truly seizures versus possible pseudoseizures. No significant leukocytosis or anemia. No evidence of significant electrolyte abnormalities. No anion gap noted. Patient did request some Zofran later and this was ordered. Benign abdomen otherwise. Would expect more lab abnormalities or postictal component given the amount of seizures he is having if this truly was a status event. Will bring in for further evaluation at this time by neurology services. DIAGNOSIS: Seizure-like events DISPOSITION: Hospitalist will evaluate Patient was agreeable with this plan. Past Med/Surg History Medical History Seizures Social History Smoking Status: Current every day smoker Tobacco Type: E-cigarettes / Vaping Second Hand Exposure: No; Do You Dip or Chew Tobacco: No; Hx Alcohol Use: No Hx Substance Use: No Preferred Language: Palauan Communication Ability: Effective Beliefs That Will Affect Care: None Current Living Situation: Other Current Living Situation Comment: Nohemi GONZALEZ Feels Safe at Home: Yes Assistive Devices: None Allergies Allergies Allergy/AdvReac Type Severity Reaction Status Date / Time benztropine [From Cogentin] Allergy Unknown Verified 01/24/23 18:16 diphenhydramine Allergy Unknown Verified 01/24/23 18:16 [From Benadryl Allergy] Penicillins Allergy Unknown Verified 01/24/23 18:16 phenytoin [From Dilantin] Allergy Unknown Verified 01/24/23 18:16 prazosin [From Minipress] Allergy Unknown Verified 01/24/23 18:16 Home Meds Home Medications Medication Instructions Recorded Confirmed albuterol sulfate 90 mcg/actuation 2 puff inhalation QID PRN 01/24/23 01/24/23 aerosol inhaler Shortness Of Breath atenolol 50 mg tablet 50 mg PO DAILY 01/24/23 01/24/23 buspirone 10 mg tablet 20 mg PO BID 01/24/23 01/24/23 ciclesonide 80 mcg/actuation 1 puff inhalation BID 01/24/23 01/24/23 aerosol inhaler (Alvesco) dicyclomine 20 mg tablet 20 mg PO TID PRN .. 01/24/23 01/24/23 gabapentin 400 mg capsule 400 mg PO BID 01/24/23 01/24/23 nortriptyline 50 mg capsule 50 mg PO DAILY 01/24/23 01/24/23 nortriptyline 50 mg capsule 100 mg PO HS 01/24/23 01/24/23 paliperidone palmitate 234 mg/1.5 234 mg IM .[id number] 01/24/23 01/24/23 mL intramuscular syringe (Invega Sustenna) tamsulosin 0.4 mg capsule 0.4 mg PO DAILY 01/24/23 01/24/23 Previous Rx's Medication Instructions Recorded levetiracetam 1,000 mg tablet 1,250 mg PO BID #30 tabs 01/26/23 Results & Data (ED) Vital Signs Vital Signs - 24 hr 02/20/23 13:55 02/20/23 13:50 02/20/23 13:50 Temperature 36.8 C Temperature Source Oral Pulse Rate 96 H 95 H Pulse Rate from SpO2 Sensor Pulse Rhythm Regular Pulse Strength Normal Respiratory Rate 21 Respiratory Effort / Characteristics Non-Labored Respiratory Depth Normal Respiratory Pattern Regular Blood Pressure 127/89 Blood Pressure Mean 101 Blood Pressure Position Sitting Pulse Oximetry 95 95 Oxygen Delivery Method Room Air Room Air Sepsis Recent Fever Within 48 Hours No Sepsis New/Unexplained Change in Mental Status No Sepsis Action Taken by Nursing No Action Required 02/20/23 13:52 02/20/23 13:53 02/20/23 14:00 Temperature Temperature Source Pulse Rate 97 H Pulse Rate from SpO2 Sensor Pulse Rhythm Pulse Strength Respiratory Rate 21 Respiratory Effort / Characteristics Respiratory Depth Respiratory Pattern Blood Pressure 125/95 127/89 Blood Pressure Mean 105 101 Blood Pressure Position Pulse Oximetry 97 Oxygen Delivery Method Room Air Sepsis Recent Fever Within 48 Hours Sepsis New/Unexplained Change in Mental Status Sepsis Action Taken by Nursing 02/20/23 14:00 02/20/23 14:30 02/20/23 14:30 Temperature Temperature Source Pulse Rate 93 H 97 H Pulse Rate from SpO2 Sensor Pulse Rhythm Pulse Strength Respiratory Rate 17 21 Respiratory Effort / Characteristics Respiratory Depth Respiratory Pattern Blood Pressure 143/98 H Blood Pressure Mean 113 Blood Pressure Position Pulse Oximetry 98 97 Oxygen Delivery Method Room Air Room Air Sepsis Recent Fever Within 48 Hours Sepsis New/Unexplained Change in Mental Status Sepsis Action Taken by Nursing 02/20/23 14:45 02/20/23 15:00 02/20/23 15:00 Temperature Temperature Source Pulse Rate 97 H 102 H Pulse Rate from SpO2 Sensor 97 H 102 H Pulse Rhythm Pulse Strength Respiratory Rate 24 19 Respiratory Effort / Characteristics Respiratory Depth Respiratory Pattern Blood Pressure 127/89 Blood Pressure Mean 101 Blood Pressure Position Pulse Oximetry 94 95 Oxygen Delivery Method Room Air Room Air Sepsis Recent Fever Within 48 Hours Sepsis New/Unexplained Change in Mental Status Sepsis Action Taken by Nursing 02/20/23 15:15 Temperature Temperature Source Pulse Rate 105 H Pulse Rate from SpO2 Sensor 105 H Pulse Rhythm Pulse Strength Respiratory Rate 24 Respiratory Effort / Characteristics Respiratory Depth Respiratory Pattern Blood Pressure Blood Pressure Mean Blood Pressure Position Pulse Oximetry 93 Oxygen Delivery Method Room Air Sepsis Recent Fever Within 48 Hours Sepsis New/Unexplained Change in Mental Status Sepsis Action Taken by Nursing Laboratory Data 02/20/23 13:57 02/20/23 13:57 Lab Results 02/20/23 02/20/23 02/20/23 Range/Units 13:57 13:57 13:59 WBC 7.21 (4.8-10.8) K/ul RBC 4.52 L (4.70-6.10) M/uL Hgb 14.2 (14.0-18.0) g/dl POC Hgb 13.9 L (14.0-18.0) g/dl Hct 41.1 L (42.0-52.0) % POC Hct 41 L (42-52) % MCV 90.9 (80.0-100.0) fL MCH 31.4 (25.0-34.0) pg MCHC 34.5 (32.0-36.0) g/dL RDW Std Deviation 41.6 (36.4-46.3) fL RDW Coeff of Casi 12.6 (11.5-14.5) % Plt Count 257 (130-400) K/uL MPV 10.7 (9.4-12.4) fL Immature Gran % (Auto) 0.3 % Neut % (Auto) 67.4 % Lymph % (Auto) 23.3 % [place] % (Auto) 7.6 % Eos % (Auto) 0.8 % Baso % (Auto) 0.6 % Neut # (Auto) 4.86 (1.40-6.50) K/uL Lymph # (Auto) 1.68 (1.2-3.4) K/uL [place] # (Auto) 0.55 (0.11-0.59) K/uL Eos # (Auto) 0.06 (0-0.50) K/uL Baso # (Auto) 0.04 (0-0.2) K/uL Immature Gran # (Auto) 0.02 (0.01-0.20) K/uL POC Sodium 141 (135-144) mmol/L Sodium 140 (136-145) mmol/L POC Potassium 4.2 (3.3-5.0) mmol/L Potassium 4.2 (3.5-5.1) mmol/L POC Chloride 101 (101-112) mmol/L Chloride 105 (98-107) mmol/L Carbon Dioxide 28 (21-32) mmol/L POC Total CO2 26 (24-31) mmol/L Anion Gap 7 (3-11) POC Anion Gap 19.0 (16-25) mmol/L POC BUN 14 (7-18) mg/dl BUN 15 (6-23) mg/dl Creatinine 1.09 (0.6-1.4) mg/dl POC Creatinine 1.2 (0.6-1.3) mg/dl Est Cr Clr Drug Dosing 97.5 ml/min Est GFR ( Amer) 100.0 ml/min Est GFR (Non-Af Amer) 86.3 ml/min BUN/Creatinine Ratio 13.8 (10-20) Glucose 93 (70-99(Fasting)) mg/dl POC Glucose (other) 98 (70-99) mg/dl Lactate (0.4-2.0) mmol/L Calcium 9.0 (8.6-10.3) mg/dl POC Ioniz Calcium Cara 1.23 (1.12-1.32) mmol/l Magnesium 2.1 (1.7-2.4) mg/dl Total Bilirubin 0.3 (0.2-1.0) mg/dl AST 14 (13-39) U/L ALT 20 (7-52) U/L Alkaline Phosphatase 98 (34-104) U/L Total Creatine Kinase 99 (30-223) U/L Total Protein 6.7 (6.0-8.3) gm/dl Albumin 4.2 (3.4-5.0) gm/dl Globulin 2.5 (2.5-4.0) gm/dl Albumin/Globulin Ratio 1.7 (0.9-2) SARS-CoV-2, RNA, NAAT (NEGATIVE) 02/20/23 02/20/23 Range/Units 14:33 Unknown WBC (4.8-10.8) K/ul RBC (4.70-6.10) M/uL Hgb (14.0-18.0) g/dl POC Hgb (14.0-18.0) g/dl Hct (42.0-52.0) % POC Hct (42-52) % MCV (80.0-100.0) fL MCH (25.0-34.0) pg MCHC (32.0-36.0) g/dL RDW Std Deviation (36.4-46.3) fL RDW Coeff of Casi (11.5-14.5) % Plt Count (130-400) K/uL MPV (9.4-12.4) fL Immature Gran % (Auto) % Neut % (Auto) % Lymph % (Auto) % [place] % (Auto) % Eos % (Auto) % Baso % (Auto) % Neut # (Auto) (1.40-6.50) K/uL Lymph # (Auto) (1.2-3.4) K/uL [place] # (Auto) (0.11-0.59) K/uL Eos # (Auto) (0-0.50) K/uL Baso # (Auto) (0-0.2) K/uL Immature Gran # (Auto) (0.01-0.20) K/uL POC Sodium (135-144) mmol/L Sodium (136-145) mmol/L POC Potassium (3.3-5.0) mmol/L Potassium (3.5-5.1) mmol/L POC Chloride (101-112) mmol/L Chloride (98-107) mmol/L Carbon Dioxide (21-32) mmol/L POC Total CO2 (24-31) mmol/L Anion Gap (3-11) POC Anion Gap (16-25) mmol/L POC BUN (7-18) mg/dl BUN (6-23) mg/dl Creatinine (0.6-1.4) mg/dl POC Creatinine (0.6-1.3) mg/dl Est Cr Clr Drug Dosing ml/min Est GFR ( Amer) ml/min Est GFR (Non-Af Amer) ml/min BUN/Creatinine Ratio (10-20) Glucose (70-99(Fasting)) mg/dl POC Glucose (other) (70-99) mg/dl Lactate 1.7 (0.4-2.0) mmol/L Calcium (8.6-10.3) mg/dl POC Ioniz Calcium Cara (1.12-1.32) mmol/l Magnesium (1.7-2.4) mg/dl Total Bilirubin (0.2-1.0) mg/dl AST (13-39) U/L ALT (7-52) U/L Alkaline Phosphatase (34-104) U/L Total Creatine Kinase (30-223) U/L Total Protein (6.0-8.3) gm/dl Albumin (3.4-5.0) gm/dl Globulin (2.5-4.0) gm/dl Albumin/Globulin Ratio (0.9-2) SARS-CoV-2, RNA, NAAT NEGATIVE (NEGATIVE) Administered Medications Discontinued Medications Ondansetron HCl (Ondansetron Inj 2 Mg/Ml 2 Ml Vial) 4 mg IV NOW STA Stop: 02/20/23 14:26 Last Admin: 02/20/23 14:35 Dose: 4 mg Documented By: Discharge Plan Visit Data Chief Complaint: Seizure Stated Complaint: SEIZURES ED Provider: Andrea Burger Discharge Problem: Seizure-like activity, History of traumatic injury of head Patient Disposition: Being Evaluated by Hospitalist Forms Stand Alone Forms: My [facility] Prescriptions Prescriptions: No Action gabapentin 400 mg Capsule 400 mg PO BID tamsulosin 0.4 mg Capsule 0.4 mg PO DAILY dicyclomine 20 mg Tablet 20 mg PO TID PRN (Reason: ..) buspirone 10 mg Tablet 20 mg PO BID albuterol sulfate 90 mcg/actuation Hfa Aerosol Inhaler 2 puff INHALATION QID PRN (Reason: Shortness Of Breath) atenolol 50 mg Tablet 50 mg PO DAILY nortriptyline 50 mg Capsule 50 mg PO DAILY Rx Instructions: crush & float nortriptyline 50 mg Capsule 100 mg PO HS Rx Instructions: crush Alvesco 80 mcg/actuation Hfa Aerosol Inhaler 1 puff INHALATION BID Invega Sustenna 234 mg/1.5 mL Syringe 234 mg IM .[id number] Rx Instructions: GIVE ON SUNDAY levetiracetam 1,000 mg Tablet 1,250 mg PO BID Qty: 30 0RF Referrals Referrals: Nohemi GONZALEZ [Primary Care Provider] -
[2023-02-20 14:12] LABS: iSTAT Creatinine 1.2 mg/dl (0.6-1.3); iSTAT Hemoglobin 13.9 g/dl (14.0-18.0); iSTAT Ionized Calcium 1.23 mmol/l (1.12-1.32); iSTAT Potassium 4.2 mmol/L (3.3-5.0)
[2023-02-20 14:23] LABS: Basophils # (auto) 0.04 K/uL (0-0.2); Basophils % (auto) 0.6 %; Eosinophils # (auto) 0.06 K/uL (0-0.50); Eosinophils % (auto) 0.8 %; Hematocrit (blood only) 41.1 % (42.0-52.0); Hemoglobin 14.2 g/dl (14.0-18.0); Immature Granulocytes # (auto) 0.02 K/uL (0.01-0.20); Immature Granulocytes % (auto) 0.3 %; Lymphocytes # (auto) 1.68 K/uL (1.2-3.4); Lymphocytes % (auto) 23.3 %; Mean Corpuscular Hemoglobin 31.4 pg (25.0-34.0); Mean Corpuscular Hgb Conc 34.5 g/dL (32.0-36.0); Mean Corpuscular Volume 90.9 fL (80.0-100.0); Mean Platelet Volume 10.7 fL (9.4-12.4); Monocytes # (auto) 0.55 K/uL (0.11-0.59); Monocytes % (auto) 7.6 %; Neutrophils # (auto) 4.86 K/uL (1.40-6.50); Neutrophils % (auto) 67.4 %; Platelet Count 257 K/uL (130-400); RDW Coefficient of Variation 12.6 % (11.5-14.5); RDW Standard Deviation 41.6 fL (36.4-46.3); Red Blood Count 4.52 M/uL (4.70-6.10); White Blood Count 7.21 K/ul (4.8-10.8)
[2023-02-20] MEDS ORDERED: ONDANSETRON INJ 2 MG/ML 2 ML VIAL IV STA (14:25)
[2023-02-20 14:43] LABS: Albumin Globulin Ratio 1.7 (0.9-2); Albumin Level 4.2 gm/dl (3.4-5.0); BUN Creatinine Ratio 13.8 (10-20); Bilirubin,Total 0.3 mg/dl (0.2-1.0); Creatinine Clr Calc Pharmacy 97.5 ml/min; Est GFR (Non-African American) 86.3 ml/min; Globulin 2.5 gm/dl (2.5-4.0); Magnesium 2.1 mg/dl (1.7-2.4); Potassium 4.2 mmol/L (3.5-5.1); Total Protein 6.7 gm/dl (6.0-8.3)
--- NOTE | 2023-02-20 16:04 | History & Physical Report ---
Date of Service February 20, 2023 Assessment & Plan (1) Seizure-like activity: (2) History of traumatic injury of head: (3) Breakthrough seizure: Plan: -Was discharged here last month on Keppra 1250mg BID (he reports it was increased further in assisted, will need to verify). Will continue current medications. Consult Neurology for further input -Had extensive imaging and workup just last month including EEG and MRI brain. Would not repeat additional imaging unless requested by Neurology Plan DVT ppx -SQ heparin History of Present Illness Chief Complaint: seizure Primary Care Provider: CARLOS Song Mr Sameer Tello is a 37 year with history of TBI with subsequent seizure presents today from assisted with multiple seizures. Today around 12pm he experienced aura (copper taste in mouth, halo around things) and his cell mate hit the button and staff was notified then he "blacked out". Then he next remembers being in the infirmary and reports "going in and out". He recalls being told he had multiple seizures when he was coming to in between his seiz ures. Denies loss of bowel or bladder continence. He does not have any bottom teeth so did not bite his tongue. [facility] staff reports he had "32" seizures. He received 4 mg of ativan in infirmary and 4mg of versed in ambulance en route to hospital. He was last hospitalized here last month for recurrent seizure. His keppra dose was increased at that time. He reports his Keppra was increased additionally at the assisted and he refuses further Keppra dose increases because "it does not work". Patient denies recent illness. He has been in his usual state of health otherwise. Allergies Allergy/AdvReac Type Severity Reaction Status Date / Time benztropine [From Cogentin] Allergy Unknown Verified 01/24/23 18:16 diphenhydramine Allergy Unknown Verified 01/24/23 18:16 [From Benadryl Allergy] Penicillins Allergy Unknown Verified 01/24/23 18:16 phenytoin [From Dilantin] Allergy Unknown Verified 01/24/23 18:16 prazosin [From Minipress] Allergy Unknown Verified 01/24/23 18:16 Home Medications Medication Instructions Recorded Confirmed Type albuterol sulfate 90 mcg/actuation 2 puff inhalation QID PRN 01/24/23 01/24/23 History aerosol inhaler Shortness Of Breath atenolol 50 mg tablet 50 mg PO DAILY 01/24/23 01/24/23 History buspirone 10 mg tablet 20 mg PO BID 01/24/23 01/24/23 History ciclesonide 80 mcg/actuation 1 puff inhalation BID 01/24/23 01/24/23 History aerosol inhaler (Alvesco) dicyclomine 20 mg tablet 20 mg PO TID PRN .. 01/24/23 01/24/23 History gabapentin 400 mg capsule 400 mg PO BID 01/24/23 01/24/23 History nortriptyline 50 mg capsule 50 mg PO DAILY 01/24/23 01/24/23 History nortriptyline 50 mg capsule 100 mg PO HS 01/24/23 01/24/23 History paliperidone palmitate 234 mg/1.5 234 mg IM .[id number] 01/24/23 01/24/23 History mL intramuscular syringe (Invega Sustenna) tamsulosin 0.4 mg capsule 0.4 mg PO DAILY 01/24/23 01/24/23 History levetiracetam 1,000 mg tablet 1,250 mg PO BID #30 tabs 01/26/23 01/24/23 Rx Past Med/Surg History Medical History Seizures Social History Smoking Status: Current every day smoker Tobacco Type: E-cigarettes / Vaping Second Hand Exposure: No; Do You Dip or Chew Tobacco: No; Hx Alcohol Use: No Hx Substance Use: No Preferred Language: Lebanese Communication Ability: Effective Beliefs That Will Affect Care: None Current Living Situation: Other Current Living Situation Comment: [facility] Feels Safe at Home: Yes Assistive Devices: None Review of Systems Review of Systems: As above in HPI, remaining ROS otherwise negative Physical Exam Physical Exam: Appears well. No acute distress. Answers questions appropriately ENMT: Head is normocephalic, atraumatic, mucous membrane moist Respiratory: No accessory muscle use, no wheezing/rhonchi/rales Cardiovascular: Regular rate and rhythm, no murmurs/rubs/gallops Gastrointestinal (Abdomen): Soft, non tender, non distended Musculoskeletal: No edema, no cyanosis or clubbing Skin: No rash, no redness, no ulcer noted on exposed skin Neurologic: awake, alert, spontaneously moving all extremities, answers questions appropriately Psychiatric: affect normal, maintains eye contact, speech linear, non tangential Results & Data Results & Data Vital Signs (Past 12 Hours) Vital Signs Temp Pulse Resp BP Pulse Ox O2 Del Method 02/20/23 15:15 105 H 24 93 Room Air 02/20/23 15:00 102 H 19 95 Room Air 02/20/23 15:00 127/89 02/20/23 14:45 97 H 24 94 Room Air 02/20/23 14:30 97 H 21 97 Room Air 02/20/23 14:30 143/98 H 02/20/23 14:00 93 H 17 98 Room Air 02/20/23 14:00 127/89 02/20/23 13:53 97 H 21 97 Room Air 02/20/23 13:52 125/95 02/20/23 13:50 95 Room Air 02/20/23 13:50 36.8 C 95 H 21 127/89 95 Room Air 02/20/23 13:55 96 H
[2023-02-20 17:15] LABS: Appearance Urine Clear (Clear); Bilirubin Urine Negative (Negative); Blood Urine Negative (Negative); Color Urine Yellow; Glucose Urine UA Negative (Negative); Ketones Urine Negative (Negative); Leukocyte Esterase Urine Negative (Negative); Nitrite Urine Negative (Negative); Protein Urine Negative (Negative); Urobilinogen Urine Negative (Negative); pH Urine 7.5 (4.5-7.5)
[2023-02-20 18:04] LABS: Amphetamines+Metham, Urine Neg (Neg); Barbiturates, Urine Neg (Neg); Benzodiazepine, Urine Pos (Neg); Cocaine, Urine Neg (Neg); MDMA (Ecstacy), Urine Neg (Neg); Methadone, Urine Neg (Neg); Opiate, Urine Neg (Neg); Phencyclidine, Urine Neg (Neg)
--- NOTE | 2023-02-20 19:16 | CT Scan Report ---
CT head/brain wo con CLINICAL HISTORY: seizure Technique: Contiguous axial CT images of the head were acquired from the base of the skull to the singh lauryn without intravenous contrast administration. Images were viewed in brain, subdural and bone [facility]. Automated dose lowering techniques and/or adjustment according to patient size were utilized for this exam. Comparison: Comparison is made to CT head 01/24/2023 Findings: The ventricles, basal cisterns, and cerebral sulci are normal. There is no acute intracranial hemorrh age or evidence of acute territorial infarction. Neither mass effect, shift of the midline structures , nor abnormal extra-axial fluid collections are shown. Imaged portions of the paranasal sinuses and mastoid air cells are clear. The orbits appear normal. There are no acute fractures of the calvaria or scalp swelling. Impression: No acute intracranial hemorrhage, no evidence of acute territorial infarction or other acute intracra nial disease process. ACT 112: Negative or not required by law. Electronically signed by: Rosalino Taylor M.D. 02/20/2023 7:15 PM
[2023-02-20] MEDS ORDERED: POLYETHYLENE (MIRALAX) 17 GM PACK PO PRN (19:20)
[2023-02-20] MEDS ORDERED: ACETAMINOPHEN 325 MG TAB PO PRN (19:20)
[2023-02-20] MEDS ORDERED: ONDANSETRON INJ 2 MG/ML 2 ML VIAL IV PRN (19:20)
[2023-02-20] MEDS ORDERED: LORazepam 2 MG/1 ML VIAL IV PRN (19:20)
[2023-02-20] MEDS ORDERED: ALUMINUM/MAGNESIUM SUSP 30 ML UDC PO PRN (19:20)
[2023-02-20] MEDS: SODIUM CHLORIDE 0.9% 1000ML 1,000 ML IV SCH (20:38)
[2023-02-20] MEDS: HEPARIN SOD 5,000 UNIT/0.5 ML VIAL SQ SCH (20:39)
[2023-02-20] MEDS ORDERED: ALBUTEROL HFA 8 GM INHALER INH PRN (21:45)
[2023-02-20] MEDS ORDERED: levETIRAcetam 500 MG TAB PO ONE (22:45)
[2023-02-20] MEDS: busPIRone 5 MG TAB PO SCH (23:07)
[2023-02-20] MEDS: GABAPENTIN 400 MG CAP PO SCH (23:10)
[2023-02-21] MEDS: SODIUM CHLORIDE 0.9% 1000ML 1,000 ML IV SCH (05:43)
[2023-02-21] MEDS ORDERED: levETIRAcetam 500 MG TAB PO SCH (09:00)
[2023-02-21] MEDS ORDERED: TAMSULOSIN HCL 0.4 MG CAP PO SCH (09:00)
[2023-02-21] MEDS ORDERED: NORTRIPTYLINE HCL 25 MG CAP PO SCH ×2 (09:00→21:00)
[2023-02-21] MEDS ORDERED: ATENOLOL 50 MG TABLET PO SCH (09:00)
[2023-02-21] MEDS ORDERED: FLUTICASONE FUROATE 100MCG 14 PUFFS/INHALER INH SCH (09:00)
[2023-02-21] MEDS: busPIRone 5 MG TAB PO SCH (09:17)
[2023-02-21] MEDS: HEPARIN SOD 5,000 UNIT/0.5 ML VIAL SQ SCH (09:17)
[2023-02-21] MEDS: GABAPENTIN 400 MG CAP PO SCH (09:17)
--- NOTE | 2023-02-21 09:27 | Neurology Consultation ---
Date of Consultation February 21, 2023 Assessment & Plan (1) Seizure-like activity: It is very unclear from the description of these events and his history if these are epileptic events as he is now having them despite max dose Keppra and the addition of gabapentin. I would advise outpatient consideration for long-term EEG monitoring to further characterize these events. In the meantime given the diagnostic uncertainty it would be reasonable to add a third agent - zonisamide 100mg qhs, with plan to increase to 200mg qhs in 7 days. -- Continue Keppra and gabapentin at current doses -- Zonisamide 100mg qhs with plan to increase to 200mg qhs in 7 days -- Close epilepsy follow-up with possible LTM admission in the future Telehealth Consultation Telehealth Information Telehealth Information: I performed this visit using a real-time telehealth connection between my location and the patients location ([facility]). After connecting through interactive tele-video, patient was identified by name and date of and/or wristband check.Patient (or authorized healthcare fraud representative) was informed that this was a telemedicine visit and it was being conducted confidentially over secure lines. My office door was closed and no one else was present in the room with me.Patient (or authorized healthcare fraud representative) provided consent to proceed with the visit, expressed an underst anding of privacy and security of the telemedicine visit, and gave permission to have a hospital fraud representative in the room in order to assist with the visit and to conduct portions of the visit, as needed. I informed the patient (or authorized healthcare fraud representative) that I reviewed their record and presented the opportunity for them to ask any questions regarding the visit today. The patient agreed to participate. History of Present Illness Reason for Consultation: Seizure Requesting Physician: Dr. Rosa Attending Physician: Sage Rosa MD History of Present Illness Sameer Tello is a 37 yo M presenting with a seizure cluster from [facility] yesterday. The patient has a history of seizure after TBI in 2006. He has PTSD from that event as well. He reports that his spells are brief loss of consciousness with tensing of his muscles. He is unaware of the spells but does get an aura of a metalic taste in his mouth and bright lights in his vision. He believes the keppra, which has now been increased to 2000mg BID is no longer effective. He did seem to get some benefit from the prior addition of gabapentin. He also reports a recent ambulatory EEG monitoring session through [place] where he was reportedly told he had seizures throughout the day. These records are unavailable. Today the patient feels well and has had no further events. Allergies Allergy/AdvReac Type Severity Reaction Status Date / Time benztropine [From Cogentin] Allergy Unknown Verified 02/20/23 18:36 diphenhydramine Allergy Unknown Verified 02/20/23 18:36 [From Benadryl Allergy] Penicillins Allergy Unknown Verified 02/20/23 18:36 phenytoin [From Dilantin] Allergy Unknown Verified 02/20/23 18:36 prazosin [From Minipress] Allergy Unknown Verified 02/20/23 18:36 Home Medications Medication Instructions Recorded Confirmed Type albuterol sulfate 90 mcg/actuation 2 puff inhalation QID PRN 01/24/23 02/20/23 History aerosol inhaler Shortness Of Breath atenolol 50 mg tablet 50 mg PO DAILY 01/24/23 02/20/23 History buspirone 10 mg tablet 20 mg PO BID 01/24/23 02/20/23 History ciclesonide 80 mcg/actuation 1 puff inhalation BID 01/24/23 02/20/23 History aerosol inhaler (Alvesco) dicyclomine 20 mg tablet 20 mg PO TID PRN .. 01/24/23 02/20/23 History gabapentin 400 mg capsule 400 mg PO BID 01/24/23 02/20/23 History nortriptyline 50 mg capsule 50 mg PO DAILY 01/24/23 02/20/23 History nortriptyline 50 mg capsule 100 mg PO HS 01/24/23 02/20/23 History paliperidone palmitate 234 mg/1.5 234 mg IM .[id number] 01/24/23 02/20/23 History mL intramuscular syringe (Invega Sustenna) tamsulosin 0.4 mg capsule 0.4 mg PO DAILY 01/24/23 02/20/23 History levetiracetam 1,000 mg tablet 2,000 mg PO BID 02/20/23 02/20/23 History Patient History Medical History Seizures Social History Smoking Status: Former smoker Tobacco Type: E-cigarettes / Vaping Second Hand Exposure: No; Do You Dip or Chew Tobacco: No; Tobacco Cessation Education Requested by Patient: No Hx Alcohol Use: No Hx Substance Use: No Preferred Language: Croatian Communication Ability: Effective Infectious Waste Technician Required: No Beliefs That Will Affect Care: None Current Living Situation: Other Current Living Situation Comment: [facility] Other Information That Helps Us Care for You: No Feels Safe at Home: Yes Safety Concerns: Feels Safe At This Time Assistive Devices: None Review of Systems +seizures Physical Exam Neurological Examination: Mental Status: Awake and alert. Oriented to person, place, and time. Fluent. Comprehension intact. Affect appropriate. Cranial Nerves: II: pupils 3/3 to 2/2 III/IV/: Versions intact without nystagmus. VII: Facial expression symmetric Motor: Strength was symmetric and antigravity throughout.There were no abnormal movements. Results & Data Vital Signs (Past 12 Hours) Vital Signs Temp Pulse Pulse Resp BP Pulse Ox O2 Del Method 02/21/23 08:13 36.8 C 89 14 123/84 93 Room Air 02/21/23 08:10 36.5 C 97 H 18 125/85 95 Room Air 02/21/23 05:51 74 02/21/23 04:01 36.4 C L 85 18 100/65 94 Room Air 02/20/23 23:00 86 02/20/23 22:52 36.4 C L 101 H 18 109/76 94 Room Air Laboratory Results Abnormal lab results 02/20/23 02/20/23 02/20/23 Range/Units 13:57 13:59 17:01 RBC 4.52 L (4.70-6.10) M/uL POC Hgb 13.9 L (14.0-18.0) g/dl Hct 41.1 L (42.0-52.0) % POC Hct 41 L (42-52) % U Benzodiazepines Scrn Pos H (Neg) Diagnostic Findings CT head unremarkable
--- NOTE | 2023-02-21 10:47 | Electrocardiogram Report ---
Test Reason : Blood Pressure : / mmHG Vent. Rate : 094 BPM Atrial Rate : 094 BPM P-R Int : 158 ms QRS Dur : 090 ms QT Int : 334 ms P-R-T Axes : 037 040 052 degrees QTc Int : 417 ms Normal sinus rhythm Normal ECG When compared with ECG of 25-JAN-2023 09:03, No significant change was found Confirmed by Hank Granda ([id number]) on 02/21/2023 10:47:05 AM Referred By: Nohemi [facility] Confirmed By:Hank Granda
--- NOTE | 2023-02-21 16:51 | Discharge Summary ---
Date of Service February 21, 2023 Admission HPI Per Admitting Provider Mr Sameer Tello is a 37 year with history of TBI with subsequent seizure presents today from group home with multiple seizures. Today around 12pm he experienced aura (copper taste in mouth, halo around things) and his cell mate hit the button and staff was notified then he "blacked out". Then he next remembers being in the infirmary and reports "going in and out". He recalls being told he had multiple seizures when he was coming to in between his seizures. Denies loss of bowel or bladder continence. He does not have any bottom teeth so did not bite his tongue. [facility] staff reports he had "32" seizures. He received 4 mg of ativan in infirmary and 4mg of versed in ambulance en route to hospital. He was last hospitalized here last month for recurrent seizure. His keppra dose was increased at that time. He reports his Keppra was increased additionally at the group home and he refuses further Keppra dose increases because "it does not work". Patient denies recent illness. He has been in his usual state of health otherwise. Admission Exam Per Admitting Provider Physical Exam: Appears well. No acute distress. Answers questions appropriately ENMT: Head is normocephalic, atraumatic, mucous membrane moist Respiratory: No accessory muscle use, no wheezing/rhonchi/rales Cardiovascular: Regular rate and rhythm, no murmurs/rubs/gallops Gastrointestinal (Abdomen): Soft, non tender, non distended Musculoskeletal: No edema, no cyanosis or clubbing Skin: No rash, no redness, no ulcer noted on exposed skin Neurologic: awake, alert, spontaneously moving all extremities, answers questions appropriately Psychiatric: affect normal, maintains eye contact, speech linear, non tangential Principal Diagnosis Seizure-like activity Discharge Exam Constitutional: WD/WN, vitals as above, NAD, sitting up in bed, pleasant, conversing easily Respiratory: normal respiratory effort, lungs clear to auscultation, no wheeze, rales, rhonchi. Normal insp/exp effort, no accessory muscle use Cardiovascular: RRR, no murmur, no edema Vessels: no JVD or carotid bruit Chest: normal inspection of chest Abdomen: normal bowel sounds, soft, nontender, no hepatosplenomegaly Musculoskeletal: no cyanosis or clubbing, extremities motor strength 5/5 Skin: no rashes, warm and dry normal turgor Neurologic: PERRL, EOMI, accommodation nl, no face palsy, no dysarthria CN's II- XI intact bilaterally and moves all extremities Psychiatric: A+Ox3, euthymic affect Lymphatic: no cervical or axillary lymphadenopathy : deferred Discharge Data Allergies Allergy/AdvReac Type Severity Reaction Status Date / Time benztropine [From Cogentin] Allergy Unknown Verified 02/20/23 18:36 diphenhydramine Allergy Unknown Verified 02/20/23 18:36 [From Benadryl Allergy] Penicillins Allergy Unknown Verified 02/20/23 18:36 phenytoin [From Dilantin] Allergy Unknown Verified 02/20/23 18:36 prazosin [From Minipress] Allergy Unknown Verified 02/20/23 18:36 Consultations 02/20/23 15:15 ED Decision to Admit Stat 02/20/23 19:20 Consult Neurology Routine Ordered Studies 02/20/23 17:33 CT head/brain wo con Stat Hospital Course (1) Seizure-like activity: (2) History of traumatic injury of head: Plan Patient is a 37-year-old male who presents to the hospital with multiple seizure-like episode. Patient reported multiple episodes of seizures. He did not have any postictal confusion. Denies loss of bowel and bladder incontinence. Did not have any tongue bite. On presentation to the ED patient was vitally stable. Lab work was unremarkable. Lactate was within normal limits. Patient recently had MRI brain and EEG done last admission which was normal. Neurology consult was done; recommended to continue Keppra and gabapentin at current dose. Also recommended to start Zonisamide 100mg. Discussion was done with Dr. Michael(group home doctor) regarding patient frequent admissions for possible breakthrough seizures. As per her, patient does not have any prior history of seizure prior to coming to group home. Patient was also admitted to [facility] in the past; seizure was ruled out at that time as well after extensive work-up. Patient wanted large dose of gabapentin and Ativan when he was first assessed by her. Also seizure-like activities appeared to be nonepileptic as patient is aware of his surroundings, did not have any postictal confusion, no injuries, no incontinence or tongue bite. His work-up with MRI and EEG has been unremarkable as well. This information was relayed to neurology as well. Patient was discharged back to group home without any changes in the medication regimen. Total Time Total Time Spent Total Time Spent (In Minutes): 45 Total Time Includes: Examination of the Patient, Discharge Planning, Medication Reconciliation, Communication With Other Providers and Other Discharge Plan Discharge Items Patient Disposition: [facility] Reason For Visit: SEIZURE Discharge Diagnosis: Seizure-like activity Activity: Resume your previous activity Non-emergency contact: Primary Care Provider Call non-emergency contact if: you have any medication questions and your symptoms worsen Follow-up/Referrals: Nohemi GONZALEZ [Primary Care Provider] - Diet: Regular Addtl Attending Provider Instructions: You are admitted in the hospital with seizure-like activity. The likely cause for the seizure-like activity is nonepileptic form. No medication changes have been made. Follow-up with your primary care doctor. Pending Studies at Discharge: No Stand-Alone Forms: My [facility] Skilled Items Patient informed of condition?: No Discharge Level of Care: Other Communicable Disease: No Discharge Prognosis: Stable Lines: None Urinary Catheter: No Medications and DC Order Prescriptions: Continued gabapentin 400 mg Capsule 400 mg PO BID tamsulosin 0.4 mg Capsule 0.4 mg PO DAILY dicyclomine 20 mg Tablet 20 mg PO TID PRN (Reason: ..) buspirone 10 mg Tablet 20 mg PO BID albuterol sulfate 90 mcg/actuation Hfa Aerosol Inhaler 2 puff INHALATION QID PRN (Reason: Shortness Of Breath) atenolol 50 mg Tablet 50 mg PO DAILY nortriptyline 50 mg Capsule 50 mg PO DAILY Rx Instructions: crush & float nortriptyline 50 mg Capsule 100 mg PO HS Rx Instructions: crush Alvesco 80 mcg/actuation Hfa Aerosol Inhaler 1 puff INHALATION BID Invega Sustenna 234 mg/1.5 mL Syringe 234 mg IM .[id number] Rx Instructions: GIVE ON SUNDAY levetiracetam 1,000 mg tablet 1,500 mg PO BID Discharge Orders: Discharge Order (Routine); Ordered 02/21/23 Ordered By: Sage Rosa Admission Data Admit Date/Time: 02/20/23 17:33 Attending Provider: Sage Rosa Admit Provider: Venkatesh Sue Primary Care Provider: Nohemi GONZALEZ Other Providers: Venkatesh Sue Other Interventions: Discharge Summary Assessment (RN) Last Done: 02/21/23 13:59
[2023-02-21] MEDS ORDERED: ZONISAMIDE 100 MG CAPSULE PO SCH (21:00)
[2023-02-22 14:27] LABS: 7-Aminoclonaz, Confirm NEGATIVE ng/mL (<25); Hydro-Alp Ur, GC/MS NEGATIVE ng/mL (<25); Hydroxyethylflurazepam, Conf NEGATIVE ng/mL (<50); Hydroxymidazolam Ur, GC/MS 1180 ng/mL (<50); Hydroxytriazolam NEGATIVE ng/mL (<50); Lorazepam, Ur GC/MS 183 ng/mL (<50); Nordiazepam, Confirm NEGATIVE ng/mL (<50); Oxazepam Ur, GC/MS NEGATIVE ng/mL (<50); Temazepam, Confirm NEGATIVE ng/mL (<50)
== END 2023-02-21 15:41 | DRG 101 ==
LOC: ED 13:47 → 4W 17:33 → SUATTDRO 17:33 → 4W 18:29